=== PATIENT | female | born 1985 | race Caucasian/White ===

== ENCOUNTER 2023-11-29 01:19 | Day surgery (SDC) | payer BC, SELFPAY ==
[2023-11-26 08:42] VITALS: BMI 26.6
--- NOTE | 2023-11-26 08:48 | PC.NURSE ---
Report to the Outpatient Waiting Room, entrance under the green pavilion located off [facility], at time _0700_ on date _[id number]_. Planned Procedure Time: _0900_. Time changes happen often and if your time is changed the preop area will call you the afternoon before. - You and your visitor will be asked to self-screen and do not enter if you have any COVID symptoms. - A mask is optional within the hospital at this time. Patients may have clear liquids (water, carbonated beverages, clear teas, apple juice) until 3 hours prior to surgery with a maximum of 20 ounces. - No food from midnight until time of surgery Take the following medications with a SIP of water the morning of surgery: ___None DO NOT STOP ANY OF YOUR OTHER PRESCRIPTION MEDICATIONS PRIOR TO SURGERY ?EXCEPT THE FOLLOWING Medications to discontinue per physician ____None Date to take last dose Please no make-up, nail tamazight, hairspray, perfume, deodorant, or body powder the day of surgery. No jewelry (including any body piercings) or valuables the day of surgery, leave them at home. Please take a shower or bath the night before, or the morning of, surgery with an antibacterial soap. Wear comfortable, loose fitting clothing. - Jewelry must be removed prior to entering the operating room. Rings and piercings that are not removed may be cut off. - The hospital will not accept responsibility for valuables. - Please leave all valuables, including medications, at home the day of surgery. If you are going home after surgery, a licensed speedboat driver must drive you home. - NO public transportation without another adult if you receive anesthesia. - We recommend that an adult stay with you for 24 hours following discharge. - We also recommend that you do not drive, make important decision, drink alcoholic beverages, or take any drugs that were not prescribed by your health care provider for at least 24 hours after your discharge time. Follow any additional instructions given to you from your surgeon. If you or anyone in your household have experienced Covid symptoms in the past week, please notify your surgeon or the nurse liaison at the phone number below for possible testing. Telephone instructions given to __Claudia__and asked if any additional questions and then verbalized understanding. Patient advised to call surgeon office or pre surgery nurse liaison [phone] if any additional questions.
[2023-11-29] MEDS: ACETAMINOPHEN 500 MG TABLET 1000 MG PO (07:00)
--- NOTE | 2023-11-29 07:18 | WPDHPUPDATE1 ---
History and Physical Update Update Date/Time: 11/29/23 07:18 History and Physical has been reviewed, including an updated exam of the patient. There are NO changes in the patient's condition. Risks, benefits, and alternatives have been discussed and questions answered. Patient agrees to proceed with procedure.
--- NOTE | 2023-11-29 07:18 | PM.HPGS ---
History of Present Illness History of Present Illness Consent: Risks, benefits, and alternatives have been discussed and questions answered. Patient agrees to proceed with procedure. Chief complaint: menorrhagia Narrative: Claudia Narvaez is a 38 year old female with irregular and heavy cycles. It was recommended to undergo further workup D&C hysteroscopy. Risks of infection, bleeding, perforation, and possible pathology was reviewed. The patient voices understanding and agrees to proceed. Review of Systems Review of Systems: not repeated day of surgery; patient states no changes in status [facility] Past Medical History Medical History (Updated 11/29/23 @ 07:21 by Kandy Sheppard MD) Anxiety History of HTN (hypertension) (normal spontaneous vaginal delivery) Surgical History Surgical History (Updated 11/29/23 @ 07:20 by Kandy Sheppard MD) History of S/P LEEP (status post loop electrosurgical excision procedure) Status post laparoscopic cholecystectomy Social History Social History Smoking packs per day: 0.5 Smoking cigarettes per day: 10.0 Years smoked: 5 Smoking pack-years: 2.50 Smoking status: Former smoker Tobacco type: cigarettes Smoking end date: 11/26/11 Alcohol intake: current Drinks per week: 1 Living arrangements: with family Spiritual care concerns: No Meds Home Medications and Allergies Home Medications Medication Instructions Recorded Confirmed Type escitalopram oxalate 20 mg tablet 20 mg PO QPM 11/26/23 11/26/23 History Allergies Allergy/AdvReac Type Severity Reaction Status Date / Time azithromycin [From Zithromax] AdvReac Intermediate Palpitation Verified 11/26/23 08:40 s amoxicillin [From Augmentin] AdvReac Mild Nausea Verified 11/26/23 08:40 clavulanic acid AdvReac Mild Nausea Verified 11/26/23 08:40 [From Augmentin] Exam Const: General: healthy appearing and alert Orientation/consciousness: patient oriented x3 Resp: Effort & Inspection: normal respiratory effort GI: GI Palp: Yes Soft to palpation, No Tenderness to palpation present (GI) and No Palpable mass present : External Female Exam: normal external appearance Speculum Exam - Vagina: normal appearance of the vagina and normal vaginal discharge Speculum Exam - Cervix: normal appearance of the cervix Bimanual exam- vagina & uterus: uterine size normal and consistency normal Bimanual Exam- Adnexa, other: normal adnexae and No adnexal tenderness Neuro: General: patient oriented x3 Assessment and Plan Assessment and plan (1) Menorrhagia: Code(s): N92.0 - Excessive and frequent menstruation with regular cycle Status: Acute Assessment and Plan: plan to proceed with D&C hysteroscopy
--- NOTE | 2023-11-29 07:22 | WPDHPUPDATE1 ---
History and Physical Update Update Date/Time: 11/29/23 07:22 History and Physical has been reviewed, including an updated exam of the patient. There are NO changes in the patient's condition. Risks, benefits, and alternatives have been discussed and questions answered. Patient agrees to proceed with procedure.
--- NOTE | 2023-11-29 07:22 | PM.HPGS ---
History of Present Illness History of Present Illness Consent: Risks, benefits, and alternatives have been discussed and questions answered. Patient agrees to proceed with procedure. Chief complaint: menorrhagia Narrative: Claudia Narvaez is a 38 year old female with recurrent menorrhagia. Patient with a history of simple hyperplasia without atypia. She had been on Prometrium and having good control of her cycles. The patient stopped her medication because she was mad about needing hormones and stated she did not think it would be a forever thing. It was recommended to undergo D&C hysteroscopy for further evaluation. Risks of infection, bleeding, perforation, and possible pathology are reviewed. Patient voices understanding and agrees to proceed. Review of Systems Review of Systems: not repeated day of surgery; patient states no changes in status [facility] Past Medical History Medical History (Updated 11/29/23 @ 07:25 by Kandy Sheppard MD) Anxiety with panic disorder and OCD History of HTN (hypertension) (normal spontaneous vaginal delivery) PCOS (polycystic ovarian syndrome) Surgical History Surgical History (Updated 11/29/23 @ 07:25 by Kandy Sheppard MD) History of with tubal ligation History of hysteroscopy 2021 simple hyperplasia without atypia History of weight loss surgery gastric sleeve 2020 S/P LEEP (status post loop electrosurgical excision procedure) Status post laparoscopic cholecystectomy Social History Social History Smoking packs per day: 0.5 Smoking cigarettes per day: 10.0 Years smoked: 5 Smoking pack-years: 2.50 Smoking status: Former smoker Tobacco type: cigarettes Smoking end date: 11/26/11 Alcohol intake: current Drinks per week: 1 Living arrangements: with family Spiritual care concerns: No Meds Home Medications and Allergies Home Medications Medication Instructions Recorded Confirmed Type escitalopram oxalate 20 mg tablet 20 mg PO QPM 11/26/23 11/26/23 History Allergies Allergy/AdvReac Type Severity Reaction Status Date / Time azithromycin [From Zithromax] AdvReac Intermediate Palpitation Verified 11/26/23 08:40 s amoxicillin [From Augmentin] AdvReac Mild Nausea Verified 11/26/23 08:40 clavulanic acid AdvReac Mild Nausea Verified 11/26/23 08:40 [From Augmentin] Exam Const: General: healthy appearing and alert Orientation/consciousness: patient oriented x3 Resp: Effort & Inspection: normal respiratory effort GI: GI Palp: Yes Soft to palpation, No Tenderness to palpation present (GI) and No Palpable mass present : External Female Exam: normal external appearance Speculum Exam - Vagina: normal appearance of the vagina and normal vaginal discharge Speculum Exam - Cervix: normal appearance of the cervix Bimanual exam- vagina & uterus: uterine size normal and consistency normal Bimanual Exam- Adnexa, other: normal adnexae and No adnexal tenderness Neuro: General: patient oriented x3 Assessment and Plan Assessment and plan (1) Menorrhagia: Code(s): N92.0 - Excessive and frequent menstruation with regular cycle Status: Acute Assessment and Plan: With the history of hyperplasia, it was recommended to undergo D&C hysteroscopy. Patient agrees to proceed.
[2023-11-29 07:40] VITALS: BP 148/81; PULSE 65; RESP 14; TEMP 37; O2SAT 100
[2023-11-29] MEDS: LACTATED RINGERS 1,000 ML 30 ML IV CONT (07:40)
--- NOTE | 2023-11-29 08:27 | P.PNAN_ITS ---
Anes - Initial Pre Proc Eval Procedure: Operation Date: 11/29/23 09:00 Proposed Procedures p Hysteroscopy Dilation and Curettage - Kandy Sheppard MD Date/Time: 11/29/23 08:27 Surgeon: Kandy Sheppard MD Pre Op Diagnosis: menorrhagia Patient Data Age: 38 Gender: F Height: 1.6 m Weight: 68.4 kg Last Vital Signs Temp 37.0 C 11/29/23 07:40 Pulse 65 11/29/23 07:40 Resp 14 11/29/23 07:40 BP 148/81 H 11/29/23 07:40 Pulse Ox 100 11/29/23 07:40 O2 Del Method Room Air 11/29/23 07:40 Allergies Allergy/AdvReac Type Severity Reaction Status Date / Time azithromycin [From Zithromax] AdvReac Intermediate Palpitation Verified 11/29/23 07:45 s amoxicillin [From Augmentin] AdvReac Mild Nausea Verified 11/29/23 07:45 clavulanic acid AdvReac Mild Nausea Verified 11/29/23 07:45 [From Augmentin] Home Medications Medication Instructions Recorded Confirmed Type escitalopram oxalate 20 mg tablet 20 mg PO QPM 11/26/23 11/26/23 History Patient hx anesthesia problems: none Family hx anesthesia problems: none Results Review: All pre-operative results and documents have been reviewed as part of the pre- operative evaluation. [facility] Past Medical History Medical History Anxiety HTN (hypertension) (normal spontaneous vaginal delivery) Surgical History Surgical History History of S/P LEEP (status post loop electrosurgical excision procedure) Status post laparoscopic cholecystectomy Social History Social History Smoking packs per day: 0.5 Smoking cigarettes per day: 10.0 Years smoked: 5 Smoking pack-years: 2.50 Smoking status: Former smoker Tobacco type: cigarettes Smoking end date: 11/26/11 Alcohol intake: current Drinks per week: 1 Living arrangements: with family Spiritual care concerns: No Anes - Eval Final PreProcedure Day of Procedure 11/29/23 08:27 Patient weight: overweight Heart: regular rate and rhythm Lungs: clear to auscultation Airway: Mallampati scale class II Neurological: alert and oriented Last oral intake: >/= 8 hours ASA classification: II Emergent: no Anesthetic plan: proceed Anesthesia type and monitoring: general GIVS and standard monitoring Results Review: All pre-operative results and documents have been reviewed as part of the pre- operative evaluation. Informed Consent: The patient's anesthetic plan and its attendant risks and benefits were discussed with the patient/family/POA. Questions were solicited and answers provided to the satisfaction of the patient/family/POA.
[2023-11-29] MEDS: KETOROLAC 30 MG/ML VIAL (*BKC) IV PUSH (09:05)
--- NOTE | 2023-11-29 09:08 | W.PM.PROC2 ---
Procedure Note - Detailed Date of Procedure 11/29/23 Pre-op Diagnosis menorrhagia Post-op Diagnosis Same Procedure Performed D&C hysteroscopy Surgeon Kandy Sheppard MD Anesthesia MAC Findings uterus sounds to 8cm and appears grossly Description of Procedure The patient is taken to the operating room and placed under anesthesia in the dorsal lithotomy position. She was prepped and draped in the usual sterile fashion. [place] speculum was placed in the vagina and the cervix grasped on the anterior lip with a tenaculum. The uterus is sounded 8cm. The diagnostic hysteroscope was placed and with no abnormalities noted it is removed. The sharp OO curette is used to curette the endometrium until a good uterine cry was noted in all areas. All instruments are removed. Patient was awakened from anesthesia and taken to recovery in stable condition. Sponge, needle, and instrument counts are correct per the OR staff. Estimated Blood Loss 5 Drains No Packing No Pathology Yes ( Endometrial curettings) Complications No immediate complications Condition Stable Disposition PACU
[2023-11-29 09:09] VITALS: BP 115/71; PULSE 49; RESP 14; O2SAT 100
[2023-11-29] MEDS: ONDANSETRON INJ 4 MG/2 ML VIAL IV PUSH (09:34)
[2023-11-29 09:35] VITALS: BP 124/57; PULSE 50; RESP 16
[2023-11-29 10:05] VITALS: BP 136/80; PULSE 45; RESP 18
--- NOTE | 2023-11-29 10:09 | SUR.PHASEII ---
Dr. Sesay aware of patient's HR sustaining 40s. No new orders at this time.
[2023-11-29 10:35] VITALS: BP 132/84; PULSE 50; RESP 18
== END 2023-11-29 10:41 | disposition home or self-care (01) ==
PROVIDERS: PCP Family Medicine; Visit Provider Obstetrics & Gynecology Gynecology
PROC: 0U5B8ZZ Destruction of Endometrium, Via Natural or Artificial Opening Endoscopic (ICD-10-PCS; CPT 58563; principal; 2023-11-29 09:00)
DX: N92.0 Excessive and frequent menstruation with regular cycle (principal); F41.9 Anxiety disorder, unspecified; Z87.891 Personal history of nicotine dependence
CPT/HCPCS: 58558; 88305; A9270; J1885; J2250; J2405; J2704; J3010; J7120